=== PATIENT | male | born 1945 | race Caucasian/White ===

== ENCOUNTER 2016-04-17 19:08 | Emergency (ER) | payer OTHER ==
[2016-04-17] MEDS ORDERED: XYLOCAINE 1%/Epi 1:100000 MDV 20 ML IJ ONE (19:41)
[2016-04-17] MEDS ORDERED: XYLOCAINE 1%/Epi 1:100000 MDV 20 ML ONE ×2 (20:17→21:13)
--- NOTE | 2016-04-17 21:30 | ERPHSYRPT ---
- History of Present Illness Time Seen by Provider: 04/17/16 19:17 Source: patient Patient Subjective Stated Complaint: pt states he was tryhing to get in the car and fell backwards and hit his head. denies loc. Triage Nursing Assessment: pt alert and oriented. answers questions approp. respirations nonlabored, lungs cta. extremities strength equal and strong. 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 pupils reactive. Physician History: CC: fall Hx: 70 y/o male with limited vision was attempting to get in car and fell back striking head. Cut to the back of head. Tetanus UTD. No LOC. Mild neck pain but has arthritis. No other injuries. Pain mild. Occurred: just prior to arrival Reason for Fall: tripped Injuries/Pain Location: head Allergies/Adverse Reactions: lisinopril Allergy (Verified 04/17/16 19:51) Home Medications: Aspirin EC 325 mg [Ecotrin 325 MG] 325 mg PO DAILY 04/17/16 [History] Insulin Glargine [Lantus Insulin] 35 unit SQ HS 04/17/16 [History] Metformin HCl 1000 mg [Glucophage 1000 MG] 1,000 mg PO BID 04/17/16 [History] Hx Tetanus, Diphtheria Vaccination/Date Given: Yes (2015) Hx Influenza Vaccination/Date Given: Yes (2015) Hx Pneumococcal Vaccination/Date Given: Yes (2015) Immunizations Up to Date: Yes - Review of Systems Constitutional: No Symptoms Eyes: Vision Changes (chronic loss) Ears, Nose, & Throat: No Symptoms Abdominal/Gastrointestinal: No Nausea, No Vomiting Musculoskeletal: Neck Pain, Fall, No Back Pain Skin: Other (laceration scalp), No Rash Neurological: No Dizziness, No Focal Weakness, No Headache, No Parasthesia All Other Systems: Reviewed and Negative - Past Medical History Pertinent Past Medical History: Yes Cardiac History: Hypertension Endocrine Medical History: Diabetes Type II - Past Surgical History Past Surgical History: Yes Gastrointestinal: Appendectomy, Hernia Repair - Social History Smoking Status: Never smoker Exposure to second hand smoke: Yes Drug Use: none Patient Lives Alone: No - Nursing Vital Signs Nursing Vital Signs: Initial Vital Signs Temperature 97.9 F Temperature Source Oral Pulse Rate 78 Respiratory Rate 16 Blood Pressure 148/100 Pain Intensity 7 - Garcia Coma Score Best Eye Response (Garcia): (4) open spontaneously Best Verbal Response (Marana): (5) oriented Best Motor Response (Garcia): (6) obeys commands Garcia Total: 15 - Physical Exam General Appearance: alert Head Injury: lacerations (posterior scalp with hematoma. Laceration measures 3 cm.) ENT Exam: airway nml Neck Exam: mid-line tenderness (mild) Respiratory/Chest Exam: normal breath sounds, No chest tenderness Cardiovascular Exam: regular rate/rhythm Gastrointestinal Exam: soft, No tenderness, No distention Extremity Exam: normal inspection, normal range of motion, No tenderness Neurologic Exam: alert, oriented x 3, cooperative, sensation nml, No motor deficits Skin Exam: warm, dry, laceration SpO2 Interpretation: normal SpO2: 96 Oxygen Delivery: Room Air Procedures - Laceration/Wound Repair posterior scalp Wound Length (cm): 3 Wound's Depth, Shape: linear Wound Explored: no foreign body noted Hibiclens Prep: Yes Anesthesia: local, 1% lidocaine w/ Epi Wound Repaired With: [place] (#6) Ordered Tests: Active Orders 24 hr Category Date Time Status Prepare for Sutures STAT Care 04/17/16 19:41 Active Sutures STAT Care 04/17/16 19:42 Active Wound Care STAT Care 04/17/16 19:41 Active CERVICAL SPINE WO CONTRAST [CT] Stat Exams 04/17/16 19:41 Taken HEAD WITHOUT CONTRAST [CT] Stat Exams 04/17/16 19:41 Taken Medication Summary Discontinued Medications Generic Name Dose Route Start Last Admin Trade Name Freq PRN Reason Stop Dose Admin Lidocaine/Epinephrine 5 ml 04/17/16 19:41 04/17/16 20:18 Xylocaine 1%/Epi 1:929422 Mdv 20 Ml IJ 04/17/16 19:42 5 ml STAT ONE Administration Lidocaine/Epinephrine Confirm 04/17/16 20:17 Xylocaine 1%/Epi 1:035890 Mdv 20 Ml Administered 04/17/16 20:18 Dose 1 ml .ROUTE .STK-MED ONE Lidocaine/Epinephrine Confirm 04/17/16 21:13 Xylocaine 1%/Epi 1:251151 Mdv 20 Ml Administered 04/17/16 21:14 Dose 5 ml .ROUTE .STK-MED ONE - Progress Progress Note: 04/17/16 21:25 CT head: yanelis 8:23 PM 04/17/2016: No comps. Small posterior scalp hematoma/laceration. O/W negative CT head. CT cervical: oelee 8:24 PM 04/17/2016: No comps. Multilevel DDD. O/W negative CT C spine. Staple repair. Instr given. - Departure Time of Disposition: 21:28 Departure Disposition: Home Clinical Impression: Scalp laceration Qualifiers: Encounter type: initial encounter Qualified Code(s): S01.01XA - Laceration without foreign body of scalp, initial encounter Fall Qualifiers: Encounter type: initial encounter Qualified Code(s): W19.XXXA - Unspecified fall, initial encounter Condition: Stable Critical Care Time: No Referrals: Provider,Unknown [Primary Care Provider] - Instructions: Closed Head Injury, Care for a Laceration After Repair Additional Instructions: HEAD INJURY 1. A responsible person should observe the patient at home for 24 hours. 2. If any of the following signs or symptoms are observed or occur, call your family physician or return to the emergency department: A. Behavior change B. Persistent vomiting C. Unequal pupils D. Increasing drowsiness E. Difficulty in arousing the patient F. Severe headache G. Lump on head increasing in size LACERATION CARE 1. Do not use peroxide, merthiolate, alcohol, or betadine. 2. Keep wound clean and dry. 3. Change dressing if it becomes wet or soiled. 4. If you must work, wear protective covering. 5. You may return to the emergency department or see your family physician for suture removal. 6. See your family physician or return to the emergency department for any of the following signs or symptoms: A. Redness B. Swelling C. Discolored drainage D. Red streaks E. Elevated temperature F. Other signs of infection Tylenol if needed for discomfort. Staple removal in 10 days. REturn for confusion, vomiting, or concerns.
[2016-04-17 21:36] VITALS: BP 157/91; PULSE 81; O2SAT 100
--- NOTE | 2016-04-18 08:57 | XRAY ---
Indication: Pain and posterior abrasion following fall. Multiple contiguous axial images obtained through the head without contrast. Comparison: None Age-appropriate global atrophy. No acute intracranial hemorrhage, abnormal extra-axial fluid collection, or mass effect. Fourth ventricle is midline without hydrocephalus. Ron-white matter differentiation maintained. Bony calvarium intact. Small posterior scalp hematoma/laceration near the vertex. 1 cm right maxillary sinus polyp/retention cyst. Mastoid air cells are clear. Impression: Posterior scalp hematoma/laceration. No underlying fracture or acute intracranial abnormalities. Right maxillary sinus polyp/retention cyst. CTDI is 49.11
--- NOTE | 2016-04-18 09:05 | XRAY ---
Indication: Pain following fall. Multiple contiguous axial images obtained through the cervical spine. Sagittal and coronal reformatted images obtained. Comparison: None Axial images negative for acute fracture, suspicious bony lesions, or spinal canal stenosis. There is mild/moderate C4-C7 degenerative endplate spurring. Sagittal and coronal reformatted images demonstrates minimal lordotic straightening, positional versus paraspinal spasm. Mild C4-C5 disc space narrowing. No acute compression fracture, subluxation, or jumped facet. Normal-appearing craniocervical junction. Visualized noncontrasted soft tissues demonstrates heavy carotid calcifications bilaterally. Lung apices clear. CT head reported separately. Impression: 1. Negative for acute fracture/subluxation. 2. Lordotic straightening, positional versus paraspinal spasm. 3. Multilevel degenerative changes. CT DI is 123.25
== END 2016-04-17 21:36 | disposition home or self-care (01) ==
LOC: ED 19:08
PROC: 0HQ0XZZ Repair Scalp Skin, External Approach (ICD-10-PCS; principal; 2016-04-17)
DX: S01.01XA Laceration without foreign body of scalp, initial encounter (principal); W18.30XA Fall on same level, unspecified, initial encounter; Z79.899 Other long term (current) drug therapy; I10 Essential (primary) hypertension; E11.9 Type 2 diabetes mellitus without complications
CPT/HCPCS: 12002; 70450; 72125; 99283